=== PATIENT | female | born 1960 | race Caucasian/White ===

== ENCOUNTER 2023-07-05 20:07 | Emergency (ER) | payer OTHER ==
[~2023-07-05] VITALS: Ht 160 cm; Wt 69.4 kg
[2023-07-05] MEDS ORDERED: CLONIDINE HCL 0.1 MG TABLET PO ONE (20:30)
[2023-07-05] MEDS ORDERED: NITROGLYCERIN OINT 1 GM PACKET TP ONE ×2 (20:30→20:45)
[2023-07-05] MEDS ORDERED: BENA20TA9 PO (20:33)
[2023-07-05] MEDS ORDERED: PROP20TA7 PO (20:33)
[2023-07-05] MEDS ORDERED: ATOR10TA PO (20:33)
[2023-07-05] MEDS ORDERED: CLONIDINE HCL 0.1 MG TABLET ONE (20:45)
[2023-07-05 20:50] LABS: BASOPHILS % (AUTO) 0.6 % (0.0-2.0); EOSINOPHILS # (AUTO) 0.2 K/uL (0.0-0.7); EOSINOPHILS % (AUTO) 2.3 % (0.0-7.0); HEMATOCRIT 38.3 % (31.2-41.9); HEMOGLOBIN 12.2 g/dL (10.9-14.3); LYMPHOCYTES # (AUTO) 2.8 K/uL (0.8-4.8); LYMPHOCYTES % (AUTO) 41.9 % (20.5-51.5); MEAN CORPUSCULAR HEMOGLOBIN 28.1 uug (24.7-32.8); MEAN CORPUSCULAR HGB CONC 32 g/dL (32.3-35.6); MONOCYTES # (AUTO) 0.6 K/uL (0.1-1.30); MONOCYTES % (AUTO) 8.9 % (0.0-11.0); NEUTROPHILS # (AUTO) 3.1 K/uL (1.8-8.9); NEUTROPHILS % (AUTO) 46.3 % (38.5-71.5); PLATELET COUNT (AUTO) 148 K/uL (179-408); RED BLOOD CELL COUNT(AUTO) 4.35 MIL/uL (3.63-4.92); RED CELL DISTRIBUTION WIDTH 14.1 % (12.3-17.7); WHITE BLOOD COUNT (AUTO) 6.6 K/uL (3.8-11.8)
[2023-07-05 20:52] LABS: DIFFERENTIAL COMMENT 1
[2023-07-05 21:06] LABS: CALCIUM 9.1 mg/dL (8.5-10.1); CREATININE 1.1 mg/dL (0.6-1.3); POTASSIUM 5.4 mmol/L (3.5-5.1)
[2023-07-05 21:22] LABS: ALBUMIN 3.5 g/dL (3.4-5.0); BILIRUBIN,TOTAL 0.5 mg/dL (0.2-1.0); TOTAL PROTEIN, SERUM 7.4 g/dL (6.4-8.2)
[2023-07-06 00:52] VITALS: BP 121/78; O2SAT 99
== END 2023-07-06 00:53 | disposition home or self-care (01) ==
LOC: ER 20:08
DX: R07.89 Other chest pain (principal); I10 Essential (primary) hypertension; R51.9 Headache, unspecified; Z79.899 Other long term (current) drug therapy
CPT/HCPCS: 36415; 70450; 71045; 84484; 85025; A4606; A4663